=== PATIENT | male | born 1965 | race Caucasian/White ===

== ENCOUNTER 2019-07-27 14:33 | Emergency (ER) | payer OTHER ==
[~2019-07-27] VITALS: Ht 172.7 cm; Wt 82.6 kg
[2019-07-27] MEDS ORDERED: SODIUM CHLORIDE FLUSH 10ML SYR IVF ONE (16:00)
--- NOTE | 2019-07-27 16:17 | NUR ---
CLINICAL MEDICAL ASSISTANT: URINE COLLECTED AND SENT TO LAB.
[2019-07-27 16:22] LABS: MICROSCOPIC NOT IND
[2019-07-27 16:31] LABS: BASOPHILS # (AUTO) 0.01 x10^3/uL (0-0.1); BASOPHILS % (AUTO) 0 % (0-1); EOSINOPHILS # (AUTO) 0.05 x10^3/uL (0-0.4); EOSINOPHILS % (AUTO) 1 % (1-7); LYMPHOCYTES # (AUTO) 2.88 x10^3/uL (1-3.4); LYMPHOCYTES % (AUTO) 35 % (22-44); MD NO; MEAN CORPUSCULAR HEMOGLOBIN 32.7 pg (27.5-34.5); MEAN CORPUSCULAR HGB CONC 34.3 g/dL (33.2-36.2); MEAN CORPUSCULAR VOLUME 95.6 fL (81-97); MEAN PLATELET VOLUME 6.1 fL (7.4-10.4); MONOCYTES # (AUTO) 0.66 x10^3/uL (0.2-0.8); MONOCYTES % (AUTO) 8 % (2-9); NEUTROPHILS % (AUTO) 56 % (42-75); PLATELET COUNT 303 x10^3/uL (130-400); RED BLOOD COUNT 5.11 x10^6/uL (4.38-5.82); RED CELL DISTRIBUTION WIDTH 13.9 % (9.4-14.8)
[2019-07-27 16:32] LABS: CULTURE INDICATED? NO
[2019-07-27 16:43] LABS: ALANINE AMINOTRANSFERASE 32 U/L (12-78); ANION GAP 6 mmol/L (5-15); CALCIUM 9.3 mg/dL (8.5-10.1); CHLORIDE 106 mmol/L (98-107); CREATININE 1.13 mg/dL (0.7-1.3)
[2019-07-27 16:45] LABS: ALKALINE PHOSPHATASE 88 U/L (45-117); BILIRUBIN,TOTAL 0.8 mg/dL (0.2-1.0); TOTAL PROTEIN 8.2 g/dL (6.4-8.2)
--- NOTE | 2019-07-27 17:04 | NUR ---
RESEARCH NURSE: PT AMBULATORY TO ROOM FROM LOBBY
[2019-07-27] MEDS ORDERED: HYDROmorphone 1 MG/ML, 1ML INJ ONE ×2 (18:11→19:34)
[2019-07-27] MEDS: HYDROmorphone 2 MG/ML, 1ML IVPush PRN ×2 (18:25→19:41)
--- NOTE | 2019-07-27 18:26 | NUR ---
IV ESTABLISHED AND PT MEDICATED PER MAR. PT TO CT
[2019-07-27] MEDS ORDERED: METRONIDAZOLE PMX 500MG/100ML 100 ML ONE (20:15)
[2019-07-27] MEDS ORDERED: CEFOTETAN PMX 1GM/50ML 50 ML IV ONE (21:00)
--- NOTE | 2019-07-27 21:36 | NUR ---
Very pleasant gentleman resting more comfortably at this time, family at bedside. Dr Philip to room to discuss discharge and plan of care. Medication side effects and interactions.
[2019-07-27 21:56] VITALS: BP 108/63
[2019-07-27] MEDS ORDERED: METRONIDAZOLE PMX 500MG/100ML 100 ML IV ONE (22:00)
[2019-07-27] MEDS ORDERED: OMNIPAQUE 350 MG/ML, 100ML BOTTLE ONE (23:49)
== END 2019-07-27 21:59 | disposition home or self-care (01) ==
LOC: ED 21:27
DX: K57.32 Diverticulitis of large intestine without perforation or abscess without bleeding (principal)
CPT/HCPCS: 36415; 74022; 74177; 80053; 81003; 83690; 85025; 96365; 96366; 96368; 96375; 96376; 99284; J1170; J3490; Q9967